=== PATIENT | male | born 1930 | race Caucasian/White ===

== ENCOUNTER 2019-06-11 20:46 | Emergency (ER) | payer MEDICARE, OTHER ==
[~2019-06-11] VITALS: Ht 165.1 cm; Wt 72.6 kg
[2019-06-11] MEDS ORDERED: TETANUS-DIPTH-ACEL PERTUSSIS 0.5ML SYRG IM ONE (21:15)
[2019-06-11] MEDS ORDERED: AMOXICILLIN/CLAVUL 875 MG TAB PO ONE (21:15)
[2019-06-12 00:25] VITALS: BP 174/61
== END 2019-06-12 00:40 | disposition home or self-care (01) ==
LOC: ER 20:46
DX: S61.411A Laceration without foreign body of right hand, initial encounter (principal); J44.9 Chronic obstructive pulmonary disease, unspecified; I10 Essential (primary) hypertension; W54.0XXA Bitten by dog, initial encounter; Y93.89 Activity, other specified; Y92.89 Other specified places as the place of occurrence of the external cause; Y99.8 Other external cause status
CPT/HCPCS: 12004; 73120; 90471; 90715